=== PATIENT | female | born 1965 | race Caucasian/White ===

== ENCOUNTER 2025-02-10 12:04 | Emergency (ER) | payer OTHER, MEDICAID | END 2025-02-10 13:07 | disposition home or self-care (01) | LOC: BURERS 12:04 | DX: S92.354A Nondisplaced fracture of fifth metatarsal bone, right foot, initial encounter for closed fracture (principal); S90.31XA Contusion of right foot, initial encounter; I10 Essential (primary) hypertension; F17.210 Nicotine dependence, cigarettes, uncomplicated; X50.0XXA Overexertion from strenuous movement or load, initial encounter; Y93.01 Activity, walking, marching and hiking | CPT/HCPCS: 99283 ==